=== PATIENT | male | born 1965 | race American Indian/Alaskan Native ===

== ENCOUNTER 2016-11-22 06:07 | Emergency (ER) | payer BC ==
[2016-11-22] MEDS ORDERED: Cyclobenzaprine 10 MG Tab PO ONE (06:08)
[2016-11-22 06:12] VITALS: BP 123/95
[2016-11-22] MEDS ORDERED: Cyclobenzaprine 10 MG Tab ONE (06:29)
--- NOTE | 2016-11-22 06:33 | EDM.PDOC ---
ED HPI GENERAL MEDICAL PROBLEM - General Chief Complaint: Neck Problem Stated Complaint: NECK PAIN Time Seen by Provider: 11/22/16 06:24 Source of Information: Reports: Patient History Limitations: Reports: No Limitations - History of Present Illness INITIAL COMMENTS - FREE TEXT/NARRATIVE: This 51 yo male patient reports to the ED with left sided posterior neck pain. The patient reports his symptoms started 2 days ago. The symptoms are worse in the morning, but get better throughout the day. Onset Date: 11/20/16 Duration: Constant Location: Reports: Neck Quality: Reports: Ache, Dull Severity: Moderate Improves with: Reports: None Worsens with: Reports: None Associated Symptoms: Reports: No Other Symptoms - Related Data Allergies Allergy/AdvReac Type Severity Reaction Status Date / Time No Known Allergies Allergy Verified 11/22/16 06:13 Home Meds: Home Meds . [No Known Home Meds] 11/22/16 [History] Past Medical History Musculoskeletal History: Reports: Fracture - Past Surgical History Musculoskeletal Surgical History: Reports: Arthroscopic Knee Social & Family History - Tobacco Use Smoking Status *Q: Current Every Day Smoker Years of Tobacco use: 20 Packs/Tins Daily: 0.4 Second Hand Smoke Exposure: Yes - Recreational Drug Use Recreational Drug Use: No ED ROS GENERAL - Review of Systems Review Of Systems: ROS reveals no pertinent complaints other than HPI. ED EXAM, UPPER BACK/NECK PAIN - Physical Exam Exam: See Below Exam Limited By: No Limitations General Appearance: Alert, WD/WN, Moderate Distress Eye Exam: Bilateral Eye: EOMI, Normal Inspection, PERRL Ears Exam: Normal External Exam, Normal Canal, Hearing Grossly Normal, Normal TMs Nose Exam: Normal Inspection, Normal Mucousa, No Blood Throat/Mouth Exam: Normal Inspection, Normal Lips, Normal Teeth, Normal Gums, Normal Oropharynx, Normal Voice, No Airway Compromise Head Exam: Atraumatic, Normocephalic Neck Exam: Painful Range of Motion (left side paraspinal) Nexus Criteria: No: Posterior, Midline Cervical Tenderness, Evidence of Intoxication, Altered Level of Consciousness, Focal Neurological Deficit, Painful Distraction Injuries Cardiovascular/Respiratory: Regular Rate, Rhythm, No M/R/G, Normal Peripheral Pulses, No JVD, Normal Breath Sounds, No Respiratory Distress GI/Abdominal: Normal Bowel Sounds, Soft, Non-Tender, No Organomegaly, No Distention, No Abnormal Bruit, No Mass (Male) Exam: Deferred Rectal (Males) Exam: Deferred Back Exam: Normal Inspection, Full Range of Motion, NT Extremities: Normal Inspection, Normal Range of Motion, Non-Tender, No Pedal Edema, Normal Capillary Refill 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, No Motor/Sensory Deficits, Alert, Normal Mood/Affect, Oriented x 3 Psychiatric: Normal Affect, Normal Mood Skin Exam: Normal Color, Warm/Dry Lymphatic: No Adenopathy Course - Vital Signs Last Recorded V/S: Last Vital Signs Temp 36.1 C 11/22/16 06:09 Pulse 113 H 11/22/16 06:09 Resp 18 11/22/16 06:09 BP 123/95 H 11/22/16 06:09 Pulse Ox 95 11/22/16 06:09 - Orders/Labs/Meds Meds: Medications Discontinued Medications Generic Name Dose Route Start Last Admin Trade Name Indira PRN Reason Stop Dose Admin Cyclobenzaprine HCl Confirm 11/22/16 06:29 Flexeril Administered 11/22/16 06:30 Dose 10 mg .ROUTE .STK-MED ONE Departure - Departure Time of Disposition: 06:28 Disposition: Home, Self-Care 01 Condition: Fair Clinical Impression: Neck pain on left side Neck muscle strain Qualifiers: Encounter type: initial encounter Qualified Code(s): S16.1XXA - Strain of muscle, fascia and tendon at neck level, initial encounter - Discharge Information Instructions: Cervical Sprain, [id number] Forms: ED Department Discharge Care Plan Goals: The patient was advised of the examination results during the visit. The patient was given a dose of Flexeril (10 mg) to take when he gets home. The patient was also given a script for Flexeril (10 mg) #20 to take at bedtime as needed. The patient should continue to take Advil as directed. If the patient has any additional symptoms or concerns, the patient should follow-up with his primary care facility or return to the emergency department.
== END 2016-11-22 06:39 | disposition home or self-care (01) ==
LOC: DL.ED 06:07
DX: S16.1XXA Strain of muscle, fascia and tendon at neck level, initial encounter (principal); F17.210 Nicotine dependence, cigarettes, uncomplicated; X58.XXXA Exposure to other specified factors, initial encounter
CPT/HCPCS: 99282; A9270

== ENCOUNTER 2019-05-13 03:47 | Emergency (ER) | payer OTHER ==
[2019-05-13 03:56] VITALS: BP 140/87; PULSE 101
[2019-05-13] MEDS ORDERED: Ketorolac 30 MG/ML SDV IM ONE (04:03)
[2019-05-13] MEDS ORDERED: Orphenadrine 60 MG/2 ML Inj IM ONE (04:04)
--- NOTE | 2019-05-13 04:10 | EDM.PDOC ---
ED HPI GENERAL MEDICAL PROBLEM - General Chief Complaint: Upper Extremity Injury/Pain Stated Complaint: LEFT SHOULDER PAIN Time Seen by Provider: 05/13/19 04:00 Source of Information: Reports: Patient History Limitations: Reports: No Limitations - History of Present Illness INITIAL COMMENTS - FREE TEXT/NARRATIVE: This 53 yo male patient reports to the ED with pain in his left shoulder. The patient reports he initially injured his shoulder on Friday while lifting a couch. The patient reports he was seen at the [facility] this week and given Ibuprofen (800) and Prednisone. The patient reports he took the ibuprofen , but did not take the steroid because he did not like the taste. The patient reports he was doing yard work today and made his shoulder pain worse. The patient requested a medication to make him sleep. Onset Date: 05/09/19 Duration: Constant, Getting Worse Location: Reports: Upper Extremity, Left Quality: Reports: Ache Severity: Moderate Improves with: Reports: None Worsens with: Reports: Other (lying down) Context: Reports: Activity Treatments CRM ARCHITECT: Reports: NSAIDS, Other Medication(s) Left Shoulder Pain Score (Numeric/FACES): 1 - Related Data Allergies Allergy/AdvReac Type Severity Reaction Status Date / Time No Known Allergies Allergy Verified 05/13/19 03:57 Home Meds: Home Meds . [No Known Home Meds] 11/22/16 [History] Past Medical History HEENT History: Reports: Impaired Vision Cardiovascular History: Reports: None Respiratory History: Reports: None Gastrointestinal History: Reports: None Genitourinary History: Reports: None Musculoskeletal History: Reports: Fracture Neurological History: Reports: Other (See Below) Other Neuro History: SHort term memory loss Psychiatric History: Reports: None Endocrine/Metabolic History: Reports: None Hematologic History: Reports: None Immunologic History: Reports: None Oncologic (Cancer) History: Reports: None Dermatologic History: Reports: None - Infectious Disease History Infectious Disease History: Reports: None - Past Surgical History Head Surgeries/Procedures: Reports: None Musculoskeletal Surgical History: Reports: Arthroscopic Knee Social & Family History - Family History Family Medical History: Noncontributory - Tobacco Use Smoking Status *Q: Current Every Day Smoker Years of Tobacco use: 30 Packs/Tins Daily: 0.6 - Caffeine Use Caffeine Use: Reports: Coffee, Soda, Tea - Alcohol Use Date of Last Drink: 05/12/19 - Recreational Drug Use Recreational Drug Use: No - Living Situation & Occupation Living situation: Reports: with Family Review of Systems - Review of Systems Review Of Systems: Comprehensive ROS is negative, except as noted in HPI. ED EXAM, GENERAL - Physical Exam Exam: See Below Exam Limited By: No Limitations General Appearance: Alert, WD/WN, Moderate Distress Eye Exam: Bilateral Eye: EOMI, Normal Inspection, PERRL Ears: Normal External Exam, Normal Canal, Hearing Grossly Normal, Normal TMs Nose: Normal Inspection, Normal Mucosa, No Blood Throat/Mouth: Normal Inspection, Normal Lips, Normal Teeth, Normal Gums, Normal Oropharynx, Normal Voice, No Airway Compromise Head: Atraumatic, Normocephalic Neck: Normal Inspection, Supple, Non-Tender, Full Range of Motion Respiratory/Chest: No Respiratory Distress, Lungs Clear, Normal Breath Sounds, No Accessory Muscle Use, Chest Non-Tender Cardiovascular: Normal Peripheral Pulses, Regular Rate, Rhythm, No Edema, No Gallop, No JVD, No Murmur, No Rub GI/Abdominal: Normal Bowel Sounds, Soft, Non-Tender, No Organomegaly, No Distention, No Abnormal Bruit, No Mass (Male) Exam: Deferred Rectal (Males) Exam: Deferred Back Exam: Normal Inspection, Full Range of Motion, NT Extremities: Arm Pain (left superior shoulder pain), Limited Range of Motion ( due to left shoulder pain) Neurological: Alert, Oriented, CN II-XII Intact, Normal Cognition, Normal Gait Psychiatric: Normal Affect, Normal Mood Skin Exam: Warm, Dry, Intact, Normal Color, No Rash Lymphatic: No Adenopathy Course - Vital Signs Last Recorded V/S: Last Vital Signs Temp 36.6 C 05/13/19 03:54 Pulse 101 H 05/13/19 03:54 Resp 22 H 05/13/19 03:54 BP 140/87 05/13/19 03:54 Pulse Ox 98 05/13/19 03:54 - Orders/Labs/Meds Orders: Active Orders 24 hr Category Date Time Status Orphenadrine [Norflex] Med 05/13/19 04:04 Once 60 mg IM ONETIME ONE Medication Orders Orphenadrine Citrate (Norflex) 60 mg IM ONETIME ONE Stop: 05/13/19 04:05 Meds: Medications Generic Name Dose Route Start Last Admin Trade Name Freq PRN Reason Stop Dose Admin Orphenadrine Citrate 60 mg 03/12/20 04:04 Norflex IM 05/13/19 04:05 ONETIME ONE Discontinued Medications Generic Name Dose Route Start Last Admin Trade Name Indira PRN Reason Stop Dose Admin Ketorolac Tromethamine 30 mg 05/13/19 04:03 Toradol IM 05/13/19 04:04 ONETIME ONE Departure - Departure Time of Disposition: 04:11 Disposition: Home, Self-Care 01 Condition: Fair Clinical Impression: Left shoulder strain Qualifiers: Encounter type: subsequent encounter Qualified Code(s): S46.912D - Strain of unspecified muscle, fascia and tendon at shoulder and upper arm level, left arm , subsequent encounter - Discharge Information *PRESCRIPTION DRUG MONITORING PROGRAM REVIEWED*: Not Applicable *COPY OF PRESCRIPTION DRUG MONITORING REPORT IN PATIENT IRMA: Not Applicable Instructions: Shoulder Pain, [id number], Muscle Strain, [id number] Care Plan Goals: The patient was advised of the examination results during the visit. The patient was given an injection of Toradol and Norflex while in the ED. The patient was encouraged to rest and ice the left shoulder. If the patient continues to have symptoms, the patient should follow-up with his primary care facility for further evaluation (an MRI) and management. Sepsis Event Note - Evaluation Sepsis Screening Result: No Definite Risk - Focused Exam Vital Signs: Vital Signs Temp Pulse Resp BP Pulse Ox 05/13/19 03:54 36.6 C 101 H 22 H 140/87 98 Date Exam was Performed: 05/13/19 Time Exam was Performed: 04:05 - My Orders Last 24 Hours: My Active Orders 05/13/19 04:04 Orphenadrine [Norflex] 60 mg IM ONETIME ONE - Assessment/Plan Last 24 Hours: My Active Orders 05/13/19 04:04 Orphenadrine [Norflex] 60 mg IM ONETIME ONE
== END 2019-05-13 04:18 | disposition home or self-care (01) ==
LOC: DL.ED 03:47
DX: S46.912A Strain of unspecified muscle, fascia and tendon at shoulder and upper arm level, left arm, initial encounter (principal); F17.210 Nicotine dependence, cigarettes, uncomplicated; X50.9XXA Other and unspecified overexertion or strenuous movements or postures, initial encounter; Y99.0 Civilian activity done for income or pay
CPT/HCPCS: 96372; 99283; J1885; J2360

== ENCOUNTER 2019-10-06 17:35 | Emergency (ER) | payer BC, OTHER ==
[2019-10-06 18:16] VITALS: BP 140/91; PULSE 117
[2019-10-06] MEDS ORDERED: Orphenadrine 60 MG/2 ML Inj IM ONE (19:29)
[2019-10-06] MEDS ORDERED: methylPREDNISolone Sodium Succinate 125 MG/2 ML SDV IM ONE (19:29)
--- NOTE | 2019-10-06 19:39 | EDM.PDOC ---
ED HPI GENERAL MEDICAL PROBLEM - General Chief Complaint: Back Pain or Injury Stated Complaint: RT SIDE BACK PAIN Time Seen by Provider: 10/06/19 19:25 Source of Information: Reports: Patient History Limitations: Reports: No Limitations - History of Present Illness INITIAL COMMENTS - FREE TEXT/NARRATIVE: This 54 yo male patient reports to the ED with right sided lower back pain. The patient reports he was lifting up [place] on Friday (10/04/19) when he felt his muscle tighten up. The patient reports he has been taking Tylenol and ibuprofen with some symptom relief. Onset Date: 10/04/19 Duration: Constant, Getting Worse Location: Reports: Back Quality: Reports: Other Severity: Moderate Improves with: Reports: None Worsens with: Reports: None Context: Reports: Activity Associated Symptoms: Reports: No Other Symptoms Treatments STERILIZATION SPECIALIST: Reports: Acetaminophen, NSAIDS Right Back Pain Score (Numeric/FACES): 7 - Related Data Allergies Allergy/AdvReac Type Severity Reaction Status Date / Time No Known Allergies Allergy Verified 10/06/19 18:16 Home Meds: Home Meds . [No Known Home Meds] 11/22/16 [History] Past Medical History HEENT History: Reports: Impaired Vision Cardiovascular History: Reports: None Respiratory History: Reports: None Gastrointestinal History: Reports: None Genitourinary History: Reports: None Musculoskeletal History: Reports: Fracture Neurological History: Reports: Other (See Below) Other Neuro History: SHort term memory loss Psychiatric History: Reports: None Endocrine/Metabolic History: Reports: None Hematologic History: Reports: None Immunologic History: Reports: None Oncologic (Cancer) History: Reports: None Dermatologic History: Reports: None - Infectious Disease History Infectious Disease History: Reports: None - Past Surgical History Head Surgeries/Procedures: Reports: None Musculoskeletal Surgical History: Reports: Arthroscopic Knee, Other (See Below) Other Musculoskeletal Surgeries/Procedures:: L hand surgery Social & Family History - Family History Family Medical History: Noncontributory - Tobacco Use Smoking Status *Q: Current Every Day Smoker Years of Tobacco use: 20 Packs/Tins Daily: 0.5 - Caffeine Use Caffeine Use: Reports: None - Recreational Drug Use Recreational Drug Use: No - Living Situation & Occupation Living situation: Reports: with Family ED ROS GENERAL - Review of Systems Review Of Systems: Comprehensive ROS is negative, except as noted in HPI. ED EXAM,LOWER BACK PAIN/INJURY - Physical Exam Exam: See Below Exam Limited By: No Limitations General Appearance: Alert, WD/WN, Mild Distress Eye Exam: Bilateral Eye: EOMI, Normal Inspection, PERRL Ears: Normal External Exam, Normal Canal, Hearing Grossly Normal, Normal TMs Nose: Normal Inspection, Normal Mucosa, No Blood Throat/Mouth: Normal Inspection, Normal Lips, Normal Teeth, Normal Gums, Normal Oropharynx, Normal Voice, No Airway Compromise Head: Atraumatic, Normocephalic Neck: Normal Inspection, Supple, Non-Tender, Full Range of Motion Respiratory/Chest: No Respiratory Distress, Lungs Clear, Normal Breath Sounds, No Accessory Muscle Use, Chest Non-Tender Cardiovascular: Normal Peripheral Pulses, Regular Rate, Rhythm, No Edema, No Gallop, No JVD, No Murmur, No Rub GI/Abdominal: Normal Bowel Sounds, Soft, Non-Tender, No Organomegaly, No Distention, No Abnormal Bruit, No Mass (Male) Exam: Deferred Rectal (Males) Exam: Deferred Back Exam: Paraspinal Tenderness (right sided) Extremities: Normal Inspection, Normal Range of Motion, Non-Tender, No Pedal Edema, Normal Capillary Refill Neurological: Alert, Normal Mood/Affect, Normal Dorsiflexion, CN II-XII Intact, Normal Plantar Flexion, Normal Gait, Normal Reflexes, No Motor/Sensory Deficits, Oriented x 3 Psychiatric: Normal Affect, Normal Mood Skin Exam: Warm, Dry, Intact, Normal Color, No Rash Lymphatic: No Adenopathy Course - Vital Signs Last Recorded V/S: Last Vital Signs Temp 36.7 C 10/06/19 18:14 Pulse 117 H 10/06/19 18:14 Resp 18 10/06/19 18:14 BP 140/91 H 10/06/19 18:14 Pulse Ox 95 10/06/19 18:14 - Orders/Labs/Meds Meds: Medications Discontinued Medications Generic Name Dose Route Start Last Admin Trade Name Horacioq PRN Reason Stop Dose Admin Methylprednisolone Sodium Succinate 125 mg 10/06/19 19:29 10/06/19 19:38 Solu-Medrol IM 10/06/19 19:30 125 mg ONETIME ONE Administration Orphenadrine Citrate 60 mg 10/06/19 19:29 10/06/19 19:39 Norflex IM 10/06/19 19:30 60 mg ONETIME ONE Administration Departure - Departure Time of Disposition: 19:34 Disposition: Home, Self-Care 01 Condition: Fair Clinical Impression: Low back strain Qualifiers: Encounter type: initial encounter Qualified Code(s): S39.012A - Strain of muscle, fascia and tendon of lower back, initial encounter - Discharge Information *PRESCRIPTION DRUG MONITORING PROGRAM REVIEWED*: Not Applicable *COPY OF PRESCRIPTION DRUG MONITORING REPORT IN PATIENT IRMA: Not Applicable Instructions: Muscle Strain, [id number] Forms: ED Department Discharge Care Plan Goals: The patient was advised of the examination results during the visit. The patient was given an injection of Solumedrol (125 mg) and Norflex (60 mg) while in the ED. The patient was discharged with scripts for Prednisone (20 mg) #10 to take 2 by mouth for 5 days and Flexeril (10 mg) #20 to take 1 by mouth at bedtime as needed. If the patient has any additional symptoms or concerns, the patient s hould either return to the emergency department or visit his primary care facility. Sepsis Event Note (ED) - Evaluation Sepsis Screening Result: No Definite Risk - Focused Exam Vital Signs: Vital Signs Temp Pulse Resp BP Pulse Ox 10/06/19 18:14 36.7 C 117 H 18 140/91 H 95
== END 2019-10-06 19:51 | disposition home or self-care (01) ==
LOC: DL.ED 17:35
DX: S39.012A Strain of muscle, fascia and tendon of lower back, initial encounter (principal); F17.210 Nicotine dependence, cigarettes, uncomplicated; Z98.890 Other specified postprocedural states; X50.9XXA Other and unspecified overexertion or strenuous movements or postures, initial encounter
CPT/HCPCS: 96372; 99283; J2360; J2930

== ENCOUNTER 2020-08-28 21:14 | Emergency (ER) | payer BC ==
[2020-08-28] MEDS ORDERED: Sodium Chloride 0.9% 1,000 ML IV ONE (21:37)
[2020-08-28 21:52] VITALS: BP 142/92; PULSE 122
--- NOTE | 2020-08-28 21:58 | EDM.PDOC ---
ED HPI GENERAL MEDICAL PROBLEM - General Chief Complaint: Cardiovascular Problem Stated Complaint: HEART ELEVATED RATE Time Seen by Provider: 08/28/20 21:45 Source of Information: Reports: Patient History Limitations: Reports: No Limitations - History of Present Illness INITIAL COMMENTS - FREE TEXT/NARRATIVE: This 54 yo male patient reports to the ED due to fatigue, fever and tachycardia. The patient reports his symptoms started today and have continued throughout the day. The patient reports he was drinking during the weekend and did not take any of his medications. The patient reports other than the alcohol he was not drinking much for fluids. The patient reports he had some Gatorade and water today, but has not had anything else to drink today. The patient reports he has been having a harsh cough for the past couple of days. The patient's children have had coughs and congestion over the past several days. The patient denies any recent know COVID exposure and is not vaccinated. The patient reports he works at the [employer]. The patient reports he has had previous episodes of similar symptoms after he stopped drinking ETOH. The patient denies chest pain or shortness of breath at this time. Onset: Today Duration: Constant Location: Reports: Generalized Quality: Reports: Other Severity: Moderate Improves with: Reports: None Worsens with: Reports: None Context: Reports: Other Associated Symptoms: Reports: Cough, Fever/Chills, Malaise - Related Data Allergies Allergy/AdvReac Type Severity Reaction Status Date / Time No Known Allergies Allergy Verified 08/28/20 21:52 Home Meds: Home Meds Aspirin [Aspirin EC] 81 mg PO DAILY 08/28/20 [History] Losartan [Cozaar] 25 mg PO DAILY 08/28/20 [History] Rosuvastatin [Crestor] 10 mg PO DAILY 08/28/20 [History] metFORMIN [Glucophage] 500 mg PO BID 08/28/20 [History] Past Medical History HEENT History: Reports: Impaired Vision Cardiovascular History: Reports: None Respiratory History: Reports: None Gastrointestinal History: Reports: None Genitourinary History: Reports: None Musculoskeletal History: Reports: Fracture Neurological History: Reports: Other (See Below) Other Neuro History: SHort term memory loss Psychiatric History: Reports: None Endocrine/Metabolic History: Reports: None Hematologic History: Reports: None Immunologic History: Reports: None Oncologic (Cancer) History: Reports: None Dermatologic History: Reports: None - Infectious Disease History Infectious Disease History: Reports: None - Past Surgical History Head Surgeries/Procedures: Reports: None Musculoskeletal Surgical History: Reports: Arthroscopic Knee, Other (See Below) Other Musculoskeletal Surgeries/Procedures:: L hand surgery Social & Family History - Family History Family Medical History: No Pertinent Family History - Caffeine Use Caffeine Use: Reports: None - Living Situation & Occupation Living situation: Reports: with Family ED ROS GENERAL - Review of Systems Review Of Systems: Comprehensive ROS is negative, except as noted in HPI. ED EXAM, GENERAL - Physical Exam Exam: See Below Exam Limited By: No Limitations General Appearance: Alert, WD/WN, Mild Distress, Obese Eye Exam: Bilateral Eye: EOMI, Normal Inspection, PERRL Ears: Normal External Exam, Normal Canal, Hearing Grossly Normal, Normal TMs Nose: Normal Inspection, Normal Mucosa, No Blood Throat/Mouth: Normal Inspection, Normal Lips, Normal Teeth, Normal Gums, Normal Oropharynx, Normal Voice, No Airway Compromise Head: Atraumatic, Normocephalic Neck: Normal Inspection, Supple, Non-Tender, Full Range of Motion Respiratory/Chest: No Respiratory Distress, Lungs Clear, Normal Breath Sounds, No Accessory Muscle Use, Chest Non-Tender Cardiovascular: No Edema, No Gallop, No JVD, No Murmur, No Rub, Tachycardia GI/Abdominal: Normal Bowel Sounds, Soft, Non-Tender, No Organomegaly, No Distention, No Abnormal Bruit, No Mass (Male) Exam: Deferred Rectal (Males) Exam: Deferred Back Exam: Normal Inspection, Full Range of Motion, NT Extremities: Normal Inspection, Normal Range of Motion, Non-Tender, Normal Capillary Refill, No Pedal Edema Neurological: Alert, Oriented, CN II-XII Intact, Normal Cognition, Normal Gait, Normal Reflexes, No Motor/Sensory Deficits Psychiatric: Normal Affect, Normal Mood Skin Exam: Warm, Dry, Intact, Normal Color, No Rash Lymphatic: No Adenopathy #1 Interpretation EKG Date: 08/28/20 (2133) Rhythm: Other (sinus tachycardia) Rate (Beats/Min): 121 [place]: Normal P-Wave: Present QRS: Normal ST-T: Normal QT: Normal Comparison: NA - No Prior EKG Course - Vital Signs Last Recorded V/S: Last Vital Signs Temp 100.7 F H 08/28/20 21:51 Pulse 122 H 08/28/20 21:51 Resp 20 08/28/20 21:51 BP 142/92 H 08/28/20 21:51 Pulse Ox 95 08/28/20 21:51 - Orders/Labs/Meds Orders: Active Orders 24 hr Category Date Time Status EKG Documentation Completion [RC] STAT Care 08/28/20 21:36 Ordered Chest 1V Frontal [CR] Urgent Exams 08/28/20 21:51 Ordered DRUG SCREEN URINE BIORAD [URCHEM] Stat Lab 08/28/20 21:36 Ordered Labs: Laboratory Tests 08/28/20 08/28/20 08/28/20 Range/Units 21:40 21:40 21:40 WBC 14.7 H (5.0-10.0) 10^3/uL RBC 5.25 (4.6-6.2) 10^6/uL Hgb 16.3 (14.0-18.0) g/dL Hct 47.5 (40.0-54.0) % MCV 90.5 (80-100) fL MCH 31.0 (27.0-34.0) pg MCHC 34.3 (33.0-35.0) g/dL Plt Count 210 (150-450) 10^3/uL Neut % (Auto) 82.8 H (42.2-75.2) % Lymph % (Auto) 9.2 L (20.5-50.1) % [place] % (Auto) 7.6 (2-8) % Eos % (Auto) 0.1 L (1.0-3.0) % Baso % (Auto) 0.3 (0.0-1.0) % Sodium 139 (136-145) mmol/L Potassium 3.5 (3.5-5.1) mmol/L Chloride 101 (98-107) mmol/L Carbon Dioxide 26 (21-32) mmol/L Anion Gap 15.5 H (7-13) mEq/L BUN 14 (7-18) mg/dL Creatinine 1.26 (0.70-1.30) mg/dL Est Cr Clr Drug Dosing 75.74 mL/min Estimated GFR (MDRD) 60 BUN/Creatinine Ratio 11.1 (No establ ref range) Glucose 149 H (70-99) mg/dL Lactic Acid 1.3 (0.4-2.0) mmol/L Calcium 8.7 (8.5-10.1) mg/dL Magnesium 1.7 L (1.8-2.4) mg/dL Total Bilirubin 0.8 (0.2-1.0) mg/dL AST 27 (15-37) U/L ALT 55 (16-63) U/L Alkaline Phosphatase 98 (46-116) U/L Troponin I High Sens 66 (<=76) pg/mL Total Protein 7.4 (6.4-8.2) g/dL Albumin 3.9 (3.4-5.0) g/dL Globulin 3.5 Albumin/Globulin Ratio 1.1 TSH, Ultra Sensitive 0.60 (0.36-3.74) uIU/mL Ethyl Alcohol < 3 (0) mg/dL Influenza Type A RNA (NEGATIVE) Influenza Type B RNA (NEGATIVE) SARS-CoV-2 RNA (MILA) (NEGATIVE) 08/28/20 Range/Units 21:51 WBC (5.0-10.0) 10^3/uL RBC (4.6-6.2) 10^6/uL Hgb (14.0-18.0) g/dL Hct (40.0-54.0) % MCV (80-100) fL MCH (27.0-34.0) pg MCHC (33.0-35.0) g/dL Plt Count (150-450) 10^3/uL Neut % (Auto) (42.2-75.2) % Lymph % (Auto) (20.5-50.1) % [place] % (Auto) (2-8) % Eos % (Auto) (1.0-3.0) % Baso % (Auto) (0.0-1.0) % Sodium (136-145) mmol/L Potassium (3.5-5.1) mmol/L Chloride (98-107) mmol/L Carbon Dioxide (21-32) mmol/L Anion Gap (7-13) mEq/L BUN (7-18) mg/dL Creatinine (0.70-1.30) mg/dL Est Cr Clr Drug Dosing mL/min Estimated GFR (MDRD) BUN/Creatinine Ratio (No establ ref range) Glucose (70-99) mg/dL Lactic Acid (0.4-2.0) mmol/L Calcium (8.5-10.1) mg/dL Magnesium (1.8-2.4) mg/dL Total Bilirubin (0.2-1.0) mg/dL AST (15-37) U/L ALT (16-63) U/L Alkaline Phosphatase (46-116) U/L Troponin I High Sens (<=76) pg/mL Total Protein (6.4-8.2) g/dL Albumin (3.4-5.0) g/dL Globulin Albumin/Globulin Ratio TSH, Ultra Sensitive (0.36-3.74) uIU/mL Ethyl Alcohol (0) mg/dL Influenza Type A RNA Negative (NEGATIVE) Influenza Type B RNA Negative (NEGATIVE) SARS-CoV-2 RNA (MILA) Positive H (NEGATIVE) Meds: Medications Discontinued Medications Generic Name Dose Route Start Last Admin Trade Name Freq PRN Reason Stop Dose Admin Sodium Chloride 1,000 mls @ 999 mls/hr 08/28/20 21:37 08/28/20 22:22 Normal Saline IV 08/28/20 22:37 125 mls/hr .BOLUS ONE Infusion Departure - Departure Time of Disposition: 22:46 Disposition: Home, Self-Care 01 Condition: Fair Clinical Impression: COVID-19 Fever Qualifiers: Fever type: unspecified Qualified Code(s): R50.9 - Fever, unspecified Forms: ED Department Discharge Care Plan Goals: The patient was advised of the examination, lab and x-ray results during the visit. Since the patient was COVID positive, the patient was advised to quarantine for the next 10 days. The patient was given a note for works to return on 09/07/20. The patient should take Tylenol and ibuprofen for temporary symptom relief. The patient should increase his oral fluid intake. If the patient has any additional symptoms or concerns, the patient should either return to the emergency department or visit his primary care facility. Sepsis Event Note (ED) - Evaluation Sepsis Screening Result: No Definite Risk - Focused Exam Vital Signs: Vital Signs Temp Pulse Resp BP Pulse Ox 08/28/20 21:51 100.7 F H 122 H 20 142/92 H 95 - My Orders Last 24 Hours: My Active Orders 08/28/20 21:36 EKG Documentation Completion [RC] STAT DRUG SCREEN URINE BIORAD [URCHEM] Stat 08/28/20 21:51 Chest 1V Frontal [CR] Urgent - Assessment/Plan Last 24 Hours: My Active Orders 08/28/20 21:36 EKG Documentation Completion [RC] STAT DRUG SCREEN URINE BIORAD [URCHEM] Stat 08/28/20 21:51 Chest 1V Frontal [CR] Urgent
[2020-08-28 22:13] LABS: ANION GAP 15.5 mEq/L (7-13); CHLORIDE,CL 101 mmol/L (98-107); SODIUM,NA 139 mmol/L (136-145)
[2020-08-28 22:40] LABS: CORONAVIRUS COVID-19 NAA POSITIVE (NEGATIVE)
--- NOTE | 2020-08-28 23:20 | CR ---
PROCEDURE INFORMATION: Exam: XR Chest Exam date and time: 08/28/2020 9:57 PM Age: 54 years old Clinical indication: Cough; Additional info: Tachycardia with cough TECHNIQUE: Imaging protocol: XR of the chest. Views: 1 view. COMPARISON: No relevant prior studies available. FINDINGS: Lungs: Unremarkable. No consolidation. Pleural spaces: Unremarkable. No pleural effusion. No pneumothorax. Heart/Mediastinum: Unremarkable. No cardiomegaly. Bones/joints: Unremarkable. IMPRESSION: No acute disease.
== END 2020-08-28 22:55 | disposition home or self-care (01) ==
LOC: DL.ED 21:14
DX: U07.1 COVID-19 (principal); R00.0 Tachycardia, unspecified
CPT/HCPCS: 0240U; 36415; 71045; 80053; 80307; 83605; 83735; 84443; 84484; 85025; 93005; 93010; 99284; 99285-25; J7030

== ENCOUNTER 2021-09-03 14:53 | Emergency (ER) | payer BC ==
[2021-09-03] MEDS ORDERED: Sodium Chloride 0.9% 10 ML Syringe FLUSH PRN (14:55)
[2021-09-03] MEDS ORDERED: Naloxone 2 MG/2 ML Syringe IVPUSH ONE (14:56)
[2021-09-03] MEDS ORDERED: Ondansetron 4 MG/2 ML SDV IV ONE (14:56)
[2021-09-03] MEDS ORDERED: Sodium Chloride 0.9% 1,000 ML IV ONE ×3 (14:56→17:14)
[2021-09-03] MEDS ORDERED: Dexamethasone 4 MG/ML SDV IVPUSH ONE (15:06)
[2021-09-03] MEDS ORDERED: Dexamethasone 4 MG/ML SDV ONE (15:07)
[2021-09-03] MEDS ORDERED: Midazolam 50 MG in Sodium Chloride 0.9% 40 ML IV SCH (15:15)
[2021-09-03 15:31] LABS: ANION GAP 11.7 mEq/L (7-13); CHLORIDE,CL 105 mmol/L (98-107); SODIUM,NA 142 mmol/L (136-145)
[2021-09-03 15:34] LABS: ESTIMATED GFR 83 mL/min (>=60)
[2021-09-03 15:36] LABS: AMPHETAMINES,URINE NEGATIVE (NEGATIVE); BARBITURATES,URINE NEGATIVE (NEGATIVE); BENZODIAZEPINE,URINE NEGATIVE (NEGATIVE); MDMA (ECSTASY), URINE NEGATIVE (NEGATIVE); METHADONE,URINE NEGATIVE (NEGATIVE); METHAMPHETAMINES,URINE NEGATIVE (NEGATIVE); OPIATES,URINE NEGATIVE (NEGATIVE); OXYCODONE,URINE NEGATIVE (NEGATIVE); PHENCYCLIDINE,URINE NEGATIVE (NEGATIVE); TCA,URINE NEGATIVE (NEGATIVE)
[2021-09-03] MEDS ORDERED: Midazolam 1 MG/ML 2 ML SDV ONE ×3 (15:38→17:00)
[2021-09-03] MEDS ORDERED: Piperacillin/Tazobactam 4.5 GM in Sodium Chloride 0.9% 100 ML IV ONE (15:42)
[2021-09-03] MEDS ORDERED: Piperacillin/Tazobactam 4.5 GM Vial ONE (15:42)
[2021-09-03] MEDS ORDERED: Sodium Chloride 0.9% 100 ML ONE (15:44)
[2021-09-03 15:47] VITALS: BP 138/92; PULSE 91
[2021-09-03 15:52] LABS: CORONAVIRUS COVID-19 NAA NEGATIVE (NEGATIVE); RESPIRATORY SYNCYTIAL VIR NAA NEGATIVE (NEGATIVE)
[2021-09-03] MEDS ORDERED: Midazolam 1 MG/ML 2 ML SDV IVPUSH ONE ×3 (16:10→17:14)
[2021-09-03 16:43] LABS: O2 DELIVERY DEVICE NON REBR MASK
[2021-09-03 16:45] LABS: ALLEN TEST PERFORMED; BASE EXCESS ARTERIAL -5 mmol/L ((-2)-(+3)); O2 SATURATION ARTERIAL 95 % (95-100); PCO2 ARTERIAL 44 mmHg (35-45); PO2 ARTERIAL 74 mmHg (70-100)
== END 2021-09-03 17:11 ==
LOC: DL.ED 14:53
DX: T17.908A Unspecified foreign body in respiratory tract, part unspecified causing other injury, initial encounter (principal); R41.82 Altered mental status, unspecified; F10.129 Alcohol abuse with intoxication, unspecified; J96.01 Acute respiratory failure with hypoxia; E78.00 Pure hypercholesterolemia, unspecified; I10 Essential (primary) hypertension; E11.9 Type 2 diabetes mellitus without complications; F17.210 Nicotine dependence, cigarettes, uncomplicated; Z20.822 Contact with and (suspected) exposure to COVID-19; Z79.899 Other long term (current) drug therapy; Z79.84 Long term (current) use of oral hypoglycemic drugs; Z79.82 Long term (current) use of aspirin
CPT/HCPCS: 0241U; 36415; 36600; 43752; 51702; 70450; 71045; 71250; 72125; 80053; 80305-QW; 80307; 81001; 82803; 83605; 83880; 84484; 85025; 85730; 86140; 87040; 96374; 96375; 99285-25; J2250

== ENCOUNTER 2022-01-04 14:49 | Emergency (ER) | payer BC ==
[2022-01-04 15:10] VITALS: BP 131/99; PULSE 85
== END 2022-01-04 15:17 | disposition home or self-care (01) ==
LOC: DL.ED 14:49
DX: S46.912A Strain of unspecified muscle, fascia and tendon at shoulder and upper arm level, left arm, initial encounter (principal); E78.00 Pure hypercholesterolemia, unspecified; I10 Essential (primary) hypertension; E11.9 Type 2 diabetes mellitus without complications; Z88.6 Allergy status to analgesic agent; Z79.899 Other long term (current) drug therapy
CPT/HCPCS: 99283

== ENCOUNTER 2023-01-02 11:42 | Inpatient (IN) | payer BC ==
[2023-01-02] MEDS ORDERED: Sodium Chloride 0.9% 10 ML Syringe FLUSH PRN (11:49)
[2023-01-02] MEDS ORDERED: Sodium Chloride 0.9% 1,000 ML IV ONE (11:50)
[2023-01-02] MEDS ORDERED: Ondansetron 4 MG/2 ML SDV IV ONE (11:50)
[2023-01-02] MEDS ORDERED: LORazepam 2 MG/ML SDV IVPUSH ONE (11:50)
[2023-01-02] MEDS ORDERED: Pantoprazole 40 MG Vial IVPUSH ONE (11:50)
[2023-01-02] MEDS ORDERED: Thiamine 100 MG in Sodium Chloride 0.9% 100 ML IV ONE (11:51)
[2023-01-02 12:07] LABS: BASOPHILS PERCENT AUTO 0.9 % (0.0-1.0); EOSINOPHILS PERCENT AUTO 0.1 % (1.0-3.0); HEMATOCRIT 48.5 % (40.0-54.0); HEMOGLOBIN 16.7 g/dL (14.0-18.0); MEAN CORPUSCULAR HEMOGLOBIN 31.4 pg (27.0-34.0); MEAN CORPUSCULAR HGB CONC 34.4 g/dL (33.0-35.0); MEAN CORPUSCULAR VOLUME 91.2 fL (80-100); MONOCYTES PERCENT AUTO 6.5 % (2-8); NEUTROPHILS PERCENT AUTO 65.5 % (42.2-75.2); PLATELET COUNT,PLT 231 10^3/uL (150-450); RED BLOOD CELL COUNT 5.32 10^6/uL (4.6-6.2); WHITE BLOOD CELL COUNT,WBC 13.5 10^3/uL (5.0-10.0)
[2023-01-02 12:26] LABS: INR 0.9 (0.9-1.2); PROTHROMBIN TIME 9.5 SEC (9.0-12.0)
[2023-01-02 12:34] LABS: A/G RATIO 1.1; ALBUMIN 4.2 g/dL (3.4-5.0); ANION GAP 17.1 mEq/L (7-13); BILIRUBIN TOTAL 0.5 mg/dL (0.2-1.0); BUN/CREATININE RATIO 15.5 (No establ ref range); CREATININE 1.03 mg/dL (0.70-1.30); EST CRCL DRUG DOSING (CG) 89.42 mL/min; POTASSIUM,K 4.1 mmol/L (3.5-5.1)
[2023-01-02 13:22] LABS: APPEARANCE,URINE CLEAR (CLEAR); BILIRUBIN,URINE NEGATIVE (NEGATIVE); COLOR,URINE YELLOW (YELLOW); GLUCOSE,URINE NEGATIVE (NEGATIVE); KETONES,URINE NEGATIVE (NEGATIVE); LEUKOCYTE ESTERASE,URINE NEGATIVE (NEGATIVE); NITRITE,URINE NEGATIVE (NEGATIVE); OCCULT BLOOD,URINE MODERATE (NEGATIVE); PH,URINE 5.5 (5.0-9.0); PROTEIN,URINE NEGATIVE (NEGATIVE); UROBILINOGEN,URINE 0.2 mg/dL (0.2-1.0)
[2023-01-02 13:27] LABS: AMPHETAMINES,URINE NEGATIVE (NEGATIVE); BARBITURATES,URINE NEGATIVE (NEGATIVE); BENZODIAZEPINE,URINE NEGATIVE (NEGATIVE); MDMA (ECSTASY), URINE NEGATIVE (NEGATIVE); METHADONE,URINE NEGATIVE (NEGATIVE); METHAMPHETAMINES,URINE NEGATIVE (NEGATIVE); OPIATES,URINE NEGATIVE (NEGATIVE); OXYCODONE,URINE NEGATIVE (NEGATIVE); PHENCYCLIDINE,URINE NEGATIVE (NEGATIVE); TCA,URINE NEGATIVE (NEGATIVE)
[2023-01-02 13:38] LABS: BACTERIA,URINE RARE /HPF (0-FEW/HPF); EPITHELIAL CELLS,URINE RARE /HPF (NOT SEEN); WBC,URINE 0-5 /HPF (0-5/HPF)
[2023-01-02] MEDS ORDERED: LORazepam 2 MG/ML SDV IV PRN (14:52)
[2023-01-02] MEDS ORDERED: Docusate Sodium 100 MG Cap PO PRN (14:52)
[2023-01-02] MEDS ORDERED: Acetaminophen 325 MG Tab PO PRN (14:52)
[2023-01-02] MEDS ORDERED: Ondansetron 4 MG Tab.DIS PO PRN (14:52)
[2023-01-02] MEDS: Dextrose 5%-0.9% NaCl 1,000 ML IV SCH (16:00)
[2023-01-02] MEDS: LORazepam 0.5 MG Tab PO PRN ×2 (22:29→23:38)
[2023-01-02] MEDS: Nicotine 21 MG/24 Hr Patch TRDERM SCH (23:39)
[2023-01-03] MEDS: Dextrose 5%-0.9% NaCl 1,000 ML IV SCH ×2 (00:18→08:10)
[2023-01-03] MEDS: Pantoprazole 40 MG Tab.CR PO SCH (05:59)
[2023-01-03 06:44] LABS: BASOPHILS PERCENT AUTO 0.9 % (0.0-1.0); EOSINOPHILS PERCENT AUTO 0.6 % (1.0-3.0); HEMATOCRIT 42.3 % (40.0-54.0); HEMOGLOBIN 14.4 g/dL (14.0-18.0); LYMPHOCYTES PERCENT AUTO 22.3 % (20.5-50.1); MEAN CORPUSCULAR HEMOGLOBIN 31.6 pg (27.0-34.0); MEAN CORPUSCULAR VOLUME 92.8 fL (80-100); MONOCYTES PERCENT AUTO 9.9 % (2-8); NEUTROPHILS PERCENT AUTO 66.3 % (42.2-75.2); PLATELET COUNT,PLT 206 10^3/uL (150-450); RED BLOOD CELL COUNT 4.56 10^6/uL (4.6-6.2); WHITE BLOOD CELL COUNT,WBC 8.1 10^3/uL (5.0-10.0)
[2023-01-03 06:58] LABS: ANION GAP 11.3 mEq/L (7-13); CALCIUM 8.3 mg/dL (8.5-10.1); CREATININE 0.98 mg/dL (0.70-1.30); EST CRCL DRUG DOSING (CG) 93.99 mL/min; POTASSIUM,K 3.3 mmol/L (3.5-5.1)
[2023-01-03] MEDS: Multivitamin Tab PO SCH (08:09)
[2023-01-03] MEDS: Enoxaparin 40 MG/0.4 ML Syringe SUBCUT SCH ×2 (08:09→08:12)
[2023-01-03] MEDS: Thiamine 100 MG Tab PO SCH (08:09)
[2023-01-03] MEDS: Folic Acid 1 MG Tab PO SCH (08:09)
[2023-01-03] MEDS ORDERED: Potassium Chloride 10 MEQ Tab.ER PO ONE (08:13)
[2023-01-03] MEDS: Nicotine 21 MG/24 Hr Patch TRDERM SCH (08:13)
[2023-01-03] MEDS: Losartan 50 MG Tab PO SCH (08:19)
[2023-01-03] MEDS ORDERED: Rosuvastatin 10 MG Tab PO SCH (18:00)
[2023-01-04] MEDS: LORazepam 0.5 MG Tab PO PRN (00:20)
[2023-01-04] MEDS: Dextrose 5%-0.9% NaCl 1,000 ML IV SCH (01:08)
[2023-01-04] MEDS: Pantoprazole 40 MG Tab.CR PO SCH (05:56)
[2023-01-04 06:35] LABS: ANION GAP 10.6 mEq/L (7-13); CALCIUM 8.7 mg/dL (8.5-10.1); CREATININE 1.02 mg/dL (0.70-1.30); EST CRCL DRUG DOSING (CG) 90.3 mL/min; MAGNESIUM 1.7 mg/dL (1.8-2.4); POTASSIUM,K 3.6 mmol/L (3.5-5.1)
[2023-01-04] MEDS ORDERED: metFORMIN 500 MG Tab PO SCH (08:00)
[2023-01-04] MEDS: Nicotine 21 MG/24 Hr Patch TRDERM SCH (08:37)
[2023-01-04] MEDS: Folic Acid 1 MG Tab PO SCH (08:39)
[2023-01-04] MEDS: Thiamine 100 MG Tab PO SCH (08:39)
[2023-01-04] MEDS: Multivitamin Tab PO SCH (08:39)
[2023-01-04] MEDS: Losartan 50 MG Tab PO SCH (08:39)
[2023-01-04] MEDS: Enoxaparin 40 MG/0.4 ML Syringe SUBCUT SCH (08:40)
[2023-01-04] MEDS ORDERED: Aspirin 81 MG Tab.EC PO SCH (09:00)
[2023-01-04 10:59] VITALS: BP 150/92; PULSE 76
== END 2023-01-04 10:00 | disposition home or self-care (01) | DRG 775 ==
LOC: DL.ED 11:42 → DL.MS 13:10
PROVIDERS: ADMIT Internal Medicine; ATTEND Internal Medicine
DX: F10.229 Alcohol dependence with intoxication, unspecified (principal); F10.239 Alcohol dependence with withdrawal, unspecified; E78.00 Pure hypercholesterolemia, unspecified; I10 Essential (primary) hypertension; E11.9 Type 2 diabetes mellitus without complications; R45.851 Suicidal ideations; E78.5 Hyperlipidemia, unspecified; E87.6 Hypokalemia; Z79.82 Long term (current) use of aspirin; Z87.81 Personal history of (healed) traumatic fracture; Z98.890 Other specified postprocedural states; Z79.84 Long term (current) use of oral hypoglycemic drugs; Z79.899 Other long term (current) drug therapy
CPT/HCPCS: 36415; 80048; 80053; 80143; 80179; 80305-QW; 80307; 81001; 83690; 83735; 85025; 85610; 85730; 96361; 96374; 96375; 99284; 99285-25; A9270-GY; C9113; J1650; J2060; J2405; J3411; J3490; J7030; J7042